=== PATIENT | female | born 1960 | race Caucasian/White ===

== ENCOUNTER → 2017-07-09 | Outpatient (CLI) | payer OTHER ==
[~2017-07-09] MED LIST: ATIVAN GENERIC0.5 MG PO; GABAPENTIN300 M1 PO; METFORMIN500 MG PO; OMEPRAZOLE20 MG PO; PRAVACHOL20 MG PO; VALACYCLOVIR H500 MG PO; VIIBRYD20 MG PO; ZOLPIDEM 10MG T10 MG PO
--- NOTE | 2017-07-14 16:27 | RADIOLOGY REPORT PS360 ---
DIG MAMM-SCREEN TATO W/CAD CAD Screening COMPARISON: Digital mammograms 05/20/2016 and additional views left breast 06/04/2016 INDICATION: There is a history of breast cancer patient maternal aunt. There is been previous biopsy left breast and previous cyst aspiration left breast. TECHNIQUE: Standard CC and MLO images were obtained. R2 CAD reviewed. FINDINGS: Moderate heterogenic rest density seen in the central portions of both breasts. There are 2 biopsy clips left breast. The previously noted nodular density 12:00 position left breast is not deftly seen previously only was aspirated. There is no new or suspicious lesion in either breast and there are no suspicious microcalcifications. IMPRESSION: Stable exam no suspicious lesion seen recommend yearly follow-up BI-RADS CATEGORY: 2_Benign RECOMMENDED FOLLOWUP: 12M 12 MONTH FOLLOW-UP (A letter has been sent to the patient regarding results of the study.)
== END ==
LOC: RAD 10:17
DX: Z12.31 Encounter for screening mammogram for malignant neoplasm of breast (principal)
CPT/HCPCS: G0202